=== PATIENT | female | born 1990 | race Caucasian/White ===

== ENCOUNTER → 2017-01-10 | Day surgery (SDC) | payer OTHER ==
[~2017-01-10] MED LIST: ACETAMINOPHEN 1000 MG/100 ML 100 ML IV ONE; BUPIVACAINE LIPOSOME PF 1.3% 20 ML VIAL ONE; BUPIVACAINE/EPINEPHRINE 0.25% 50 ML VIAL ONE; HYDROmorphone HCL PF 2 MG/ML VIAL ONE; KETOROLAC TROMETHAMINE 30 MG/ML (IVP) VIAL IV PUSH ONE; LACTATED RINGER'S 1000 ML INJ 1,000 ML ONE; LIDOCAINE 1%/EPINEPHrine 1:100,000 SOLN 50 ML VIAL ONE; MIDAZOLAM HCL 2 MG/2 ML VIAL ONE; ONDANSETRON HCL 4 MG/2 ML VIAL IV PUSH ONE; PROPOFOL 200 MG/20 ML AMP IV ONE; SODIUM CHLORIDE 0.9% 20 ML VIAL ONE; ceFAZolin INJ 1,000 MG VIAL ONE
--- NOTE | 2017-01-10 10:54 | TN ---
cc: NORRIS QURESHI M.D. 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 PROCEDURE Bilateral mastectomy with free nipple graft. SURGEON Norris Qureshi MD ANESTHESIA LMA general. ESTIMATED BLOOD LOSS Minimal. COMPLICATIONS None. DRAINS Two 7 mm LISA. PROCEDURE The patient was properly consented, marked, properly anesthetized. The skin was sterilized with Betadine solution and sterile draping applied. A block of total of 60 ccs of 1% lidocaine with epinephrine was mixed with 0.25% Marcaine at 2:1 ratio. At the end of the case I also infiltrated with a total of 20 ccs mixed with 20 ccs of injectable saline of Exparel 20 ccs per breast. As the procedure started by harvesting the nipple by reducing the areola to 2 cm in diameter. It was properly harvested full-thickness and was kept in a moist sponge properly aligned, documented and on a side table. At this point I proceeded and performed the mastectomy by utilizing this inframammary fold, prospecting the fascia of the pectoris major muscle up to the second to third intercostal space, anterior parasternal area, anterior axillary line. The tissue was properly removed and was sent to pathology for routine analysis. Reinforcement of the Mariana's fascia was carried out into the inferior edge of the pectoris major muscle utilizing 2-0 Monocryl suture. A quilting technique was utilized at this point by adherent of the chest tissue down to the flap. Nonetheless, a 7 mm LISA was run and secured in place. I utilized 2-0 Monocryl suture to do so. The wounds were closed utilizing 2-0 Monocryl in the Mariana's fascia and dermis and Prineo Dermabond was utilized for the skin. The patient was sat up and we marked properly the new areola right at the edge of the inferolateral aspect of pectoris major muscle just superior to it. With this the skin was properly marked, de-epithelialized and the full-thickness graft that was properly defatted was applied back into the recipient site and secured utilizing tie-over dressings including Xeroform gauze, [place] foam and 4-0 Silk suture was utilized to perform that. The contralateral side was approached exactly in the same manner as previously described. For dressings we utilized absorbent dressings and compression tape. Good viability of tissue was noted at the end of the case. The patient was awakened, extubated in the operating room and transferred back to the postanesthesia care unit in stable condition. No complications were appreciated. The patient tolerated the procedure fairly well. MD ALDAIR Bear/TESSIE /10:29 AM /10:45 AM
== END | disposition home or self-care (01) ==
LOC: ESDC 06:08
PROVIDERS: ATTEND Plastic Surgery
DX: F64.9 Gender identity disorder, unspecified (principal)
CPT/HCPCS: 00400; 15200; 15201; 19303; 88305; C9290; J0131; J0690; J1170; J1885; J2250; J2405; J3010; J7120